=== PATIENT | male | born 1945 | race Caucasian/White ===

== ENCOUNTER → 2016-12-05 | Outpatient (CLI) | payer OTHER | LOC: MMPC 09:00 | DX: I10 Essential (primary) hypertension (principal); K21.9 Gastro-esophageal reflux disease without esophagitis; E55.9 Vitamin D deficiency, unspecified; L30.9 Dermatitis, unspecified; L57.0 Actinic keratosis | CPT/HCPCS: 17000 ×2; 99213; G0463 ==